=== PATIENT | female | born 1970 | race African-American/Black ===

== ENCOUNTER 2018-12-15 12:47 | Emergency (ER) | payer SELFPAY ==
--- OUTSIDE RECORDS SUMMARY | 2018-12-15 12:49 | XMS REPORT | Clinical Summary ---
Author Author [facility] Organization [facility] Address Unknown Phone Unavailable Care Team Providers Care Fishing Tool Supervisor Name Role Phone Cindi Spangler MD PCP Allergies No Known Allergies Medications End Date Status Medication Sig Dispensed Refills Start Date Active blood sugar diagnostic Check twice 100 strip 3 strips (ONETOUCH ULTRA daily 7 TEST) strip test strips 01/07/2018 sitaGLIPtin-metformin Take 1 tablet 60 tablet 3 (JANUMET) 50-1,000 mg per by mouth 2 7 tablet (two) times a day with meals. Active Problems Not on file Family History Medical History Relation Name Comments Diabetes Father Diabetes Mother Relation Name Status Comments Father Alive Mother Alive Social History Date Tobacco Use Types Packs/Day Years Used Never Smoker Smokeless Tobacco: Never Used Alcohol Use Drinks/Week oz/Week Comments No Sex Assigned at Date Recorded Not on file Industry Job Start Date Occupation Not on file Not on file Not on file Travel End Travel History Travel Start No recent travel history available. Last Filed Vital Signs Not on file Plan of Treatment Health Maintenance Due Date Last Done Comments INFLUENZA VACCINE 12/15/2018 Results Not on fileafter 12/14/2017 Insurance Type Payer Benefit Subscriber ID Effective Phone Address Plan / Dates Group HMO/PPO [id number] THCARE resent CHOICE/CHO ICE + Advance Directives Patient has advance care planning documents on file. For more information, ritesh russ contact: Galdino Fajardo [address] [place] [address]
--- OUTSIDE RECORDS SUMMARY | 2018-12-15 12:49 | XMS REPORT | Clinical Summary ---
Author Author DAHLIA RecommendCaribou Memorial HospitalDiscourse [facility] Trauma CenterClean Filtration TechnologyNew [facility] Address Unknown Phone Unavailable Care Team Providers Care Draw Bench Operator Name Role Phone Morgan Cooper MD PCP Allergies No Known Allergies Medications Not on file Active Problems Not on file Encounters Care Team Description Date Type Specialty Denise Palomino MD Myalgia (Primary Dx); Hyperglycemia; History of diabetes mellitus 08/12/2018 Emergency Emergency Medicine - 08/13/2018 08/12/2018 Travel after 12/14/2017 Social History Date Tobacco Use Types Packs/Day Years Used Never Smoker Smokeless Tobacco: Never Used Alcohol Use Drinks/Week oz/Week Comments No Alcohol Habits Answer Date Recorded How often do you have a drink containing alcohol? Never 08/12/2018 How many drinks containing alcohol do you have on Not asked a typical day when you are drinking? How often do you have six or more drinks on one Not asked occasion? Sex Assigned at Date Recorded Not on file Industry Job Start Date Occupation Not on file Not on file Not on file Travel End Travel History Travel Start No recent travel history available. Last Filed Vital Signs Time Taken Vital Sign Reading 08/13/2018 12:00 AM CDT Blood Pressure 155/88 08/13/2018 12:00 AM CDT Pulse 72 08/12/2018 11:15 PM CDT Temperature 36.6 C (97.8 F) 08/13/2018 12:00 AM CDT Respiratory Rate 18 08/13/2018 12:00 AM CDT Oxygen Saturation 98% - Inhaled Oxygen - Concentration 08/12/2018 9:14 PM CDT Weight 63.1 kg (139 lb 3 oz) - Height - - Body Mass Index - Plan of Treatment Not on file Procedures Comments Procedure Name Priority Date/Time Associated Diagnosis XR CHEST 2 VIEWS STAT 08/12/2018 11:35 PM CDT CBC W/PLT COUNT & AUTO STAT 08/12/2018 DIFFERENTIAL 11:29 PM CDT HEPATIC FUNCTION PANEL STAT 08/12/2018 11:29 PM CDT CREATINE KINASE (CK) STAT 08/12/2018 11:29 PM CDT BASIC METABOLIC PANEL (7) STAT 08/12/2018 11:29 PM CDT CBC W/PLT COUNT & AUTO STAT 08/12/2018 DIFFERENTIAL 11:29 PM CDT SCREEN, URINE STAT 08/12/2018 11:14 PM CDT URINALYSIS W/ MICROSCOPIC STAT 08/12/2018 11:14 PM CDT RAPID INFLUENZA A&B STAT 08/12/2018 SCREEN 10:18 PM CDT after 12/14/2017 Results * XR chest 2 views (08/12/2018 11:35 PM CDT) Specimen Narrative Performed At FINAL REPORT [facility] PA and Lateral views of the chest dated 08/12/2018 Clinical information: GENERALIZED BODY ACHES Comment:Heart is normal in size. Pulmonary vasculature is unremarkable. Lungs are clear. No pulmonary infiltrate or pleural effusion is present. There is dextroscoliosis in the thoracic spine. Impression:No active cardiopulmonary disease. Signed: Raissa Varela MD Report Verified Date/Time:08/12/2018 23:39:18 Reading Location: [address] Consult Reading Room Procedure Note Interface, External Ris In - 08/12/2018 11:41 PM CDT FINAL REPORT PA and Lateral views of the chest dated 08/12/2018 Clinical information: GENERALIZED BODY ACHES Comment: Heart is normal in size. Pulmonary vasculature is unremarkable. Lungs are clear. No pulmonary infiltrate or pleural effusion is present. There is dextroscoliosis in the thoracic spine. Impression: No active cardiopulmonary disease. Signed: Raissa Varela MD Report Verified Date/Time: 08/12/2018 23:39:18 Reading Location: [facility] [id number] Consult Reading Room Performing Organization Address City/State/Zipcode Phone Number GE [facility] * CBC with platelet count + automated diff (08/12/2018 11:29 PM CDT) WBC 8.3 4.0 - 10.0 K/L [facility], [facility] [place] RBC 4.61 4.00 - 5.00 M/L [facility] [place] Hemoglobin 13.2 12.0 - 15.0 GM/DL [facility] Hematocrit 39.6 36.0 - 45.0 % [facility] [place] MCV 85.8 82.0 - 99.0 fL [facility] [place] MCH 28.7 27.0 - 33.0 pg [facility] [place] MCHC 33.4 32.0 - 36.0 GM/DL [facility] [place] RDW 12.7 10.3 - 14.2 % [facility] Platelets 329 150 - 430 K/CU MM [facility] [place] MPV 8.1 6.5 - 10.5 fL [facility] [place] % Neutros 53 % [facility] [place] % Lymphs 35 % [facility] [place] % Monos 7 % [facility] [place] % Eos 5 % [facility] [place] % Baso 1 % [facility], [facility] [place] # Neutros 4.37 1.80 - 8.00 K/L [facility], [facility] [place] # Lymphs 2.85 1.48 - 4.50 K/L [facility], [facility] [place] # Monos 0.57 0.00 - 1.30 K/L [facility], [facility], [facility] # Eos 0.43 0.00 - 0.50 K/L [facility], [facility], [facility] # Baso 0.05 0.00 - 0.20 K/L [facility], [facility] [place] Specimen Blood Performing Organization Address City/[facility] Centercode Phone Number [address] [phone] [facility], [facility] * Creatine Kinase (CK) (08/12/2018 11:29 PM CDT) Total CK 55 25 - 235 U/L [facility] Specimen Blood Performing Organization Address City/[facility] Centercome Phone Number [address] [address] [facility] * Hepatic function panel (08/12/2018 11:29 PM CDT) Protein, Total 8.3Comment: Specimen 6.0 - 8.5 gm/dL [facility] moderately hemolyzed [facility], [facility], [facility] Albumin 4.1Comment: Specimen 3.5 - 5.0 g/dL [facility] moderately hemolyzed [facility], [facility], [facility] Total Bilirubin 0.6Comment: Specimen 0.1 - 1.2 mg/dL [facility] moderately hemolyzed [facility], [facility] [place] Bilirubin, Direct 0.4Comment: Specimen 0.0 - 0.4 mg/dL [facility] hemolyzed [facility], [facility] [place] Alkaline Phosphatase 125 (H) 30 - 115 U/L [facility] AST 26Comment: Specimen moderately 5 - 40 U/L [facility] hemolyzed [facility], [facility] [place] ALT 11Comment: Specimen moderately 5 - 50 U/L [facility] Specimen Blood Performing Organization Address City/State/Zipcode Phone Number [facility] [address] [place] [address] [facility] [place] * Basic Metabolic Panel (08/12/2018 11:29 PM CDT) Sodium 134 (L) 135 - 148 meq/L [facility] Potassium 5.3Comment: Specimen 3.6 - 5.5 meq/L [facility] hemolyzed [facility] [place] Chloride 101 98 - 106 meq/L [facility] CO2 24 24 - 32 meq/L [facility] BUN 14 10 - 26 mg/dL [facility] Creatinine 0.52Comment: Specimen 0.50 - 1.20 mg/dL [facility] hemolyzed [facility], [facility] [place] Glucose 297 (H) 70 - 110 mg/dL [facility] Calcium 9.2 8.5 - 10.5 mg/dL [facility], [facility], [facility] EGFR 154Comment: INSUFFICIENT mL/min/1.73 sq m [facility] CLINICAL DATA TO CALCULATE [facility] ESTIMATED GFR. [place], [facility], [facility] Specimen Blood Performing Organization Address City/[facility] Centercome Phone Number [address] [phone] [facility], [facility], [facility] * Screen, urine (08/12/2018 11:14 PM CDT) Preg Test, Ur Negative [facility] Specimen Urine Performing Organization Address [facility] Centercome Phone Number [address] [phone] [facility], [facility], [facility] * Urinalysis w/Microscopic (08/12/2018 11:14 PM CDT) Color, UA Yellow [facility] Clarity, UA Clear [facility] Specific [place], UA 1.020 1.001 - 1.035 [facility] pH, UA 6.5 5.0 - 8.0 [facility] Protein, UA 30 mg/dL (A) Negative [facility] Glucose, UA >=1000 mg/dL (A) Negative [facility] Ketones, UA Trace (A) Negative [facility] Bilirubin, UA Negative Negative [facility], [facility], [facility] Blood, UA Trace (A) Negative [facility] Nitrite, UA Negative Negative [facility], [facility] [place] Leukocytes, UA Negative Negative [facility] Urobilinogen, UA 0.2 0.2 - 1.0 mg/dL [facility] Bacteria, UA Moderate [facility] RBC, UA <5 /HPF [facility] WBC, UA 5-10 /HPF [facility] SQUAMOUS EPITHELIAL 5-10 /HPF [facility] Specimen Source [facility] Specimen Urine Performing Organization Address City/[facility] Centercode Phone Number [place] [phone] [place] [address] [facility] * Influenza antigen A & B (Rapid) (08/12/2018 10:18 PM CDT) Rapid Influenza A Antigen Negative Negative, Inconclusive [facility] Rapid influenza B Antigen Negative Negative, Inconclusive [facility] Specimen Nasopharyngeal Performing Organization Address [facility] Centercode Phone Number [place] [phone] [place] [address] [facility] after 12/14/2017 Insurance Payer Benefit Subscriber ID Type Phone Address Plan / Group [facility] [place] PPO xxxxxxxxx PPO CARE OPTIONS
--- OUTSIDE RECORDS SUMMARY | 2018-12-15 12:50 | XMS REPORT ---
Author Author [facility] Address Unknown Phone Unavailable Care Team Providers Care Internal Medicine Nurse Practitioner Name Role Phone JB MARC Unavailable Unavailable Problems This patient has no known problems. Allergies, Adverse Reactions, Alerts This patient has no known allergies or adverse reactions. Medications This patient has no known medications. Results Test Description Test Time Test Comments Text Results Atomic Results Result Comments URINALYSIS W/ MICROSCOPIC 2018-08-12 23:59:00 COLOR (BEAKER) (test hobm=903) Yellow CLARITY (BEAKER) (test eesh=202) Clear SPECIFIC GRAVITY UA (BEAKER) (test jdiv=218) 1.020 1.001-1.035 PH UA (BEAKER) (test ryqs=714) 6.5 5.0-8.0 PROTEIN UA (BEAKER) (test diok=272) 30 mg/dL Negative GLUCOSE UA (BEAKER) (test ausi=882) >=1000 mg/dL Negative KETONES UA (BEAKER) (test quvz=853) Trace Negative BILIRUBIN UA (BEAKER) (test zude=872) Negative Negative BLOOD UA (BEAKER) (test cqvm=761) Trace Negative NITRITE UA (BEAKER) (test bqgb=678) Negative Negative LEUKOCYTE ESTERASE UA (BEAKER) (test dyol=654) Negative Negative UROBILINOGEN UA (BEAKER) (test izsc=825) 0.2 mg/dL 0.2-1.0 BACTERIA (BEAKER) (test aivq=353) Moderate RBC UA-MANUAL (BEAKER) (test lgzs=5208) <5 /HPF WBC UA-MANUAL (BEAKER) (test ibai=1842) 5-10 /HPF SQUAMOUS EPITHELIAL MANUAL (BEAKER) (test hbsm=6806) 5-10 /HPF SOURCE(BEAKER) (test yfsu=9694) BASIC METABOLIC [id number] 23:49:00* Test Item Value Reference Range Comments SODIUM (BEAKER) (test nnci=244) 134 meq/L 135-148 POTASSIUM (BEAKER) (test xrbu=008) 5.3 meq/L 3.6-5.5 Specimen moderately hemolyzed CHLORIDE (BEAKER) (test uuau=075) 101 meq/L 98-106 CO2 (BEAKER) (test meef=422) 24 meq/L 24-32 BLOOD UREA NITROGEN (BEAKER) (test sfmc=338) 14 mg/dL 10-26 CREATININE (BEAKER) (test yhvb=267) 0.52 mg/dL 0.50-1.20 Specimen moderately hemolyzed GLUCOSE RANDOM (BEAKER) (test xmwa=285) 297 mg/dL 70-110 CALCIUM (BEAKER) (test kgeh=935) 9.2 mg/dL 8.5-10.5 EGFR (BEAKER) (test xlgu=6134) 154 mL/min/1.73 sq m INSUFFICIENT CLINICAL DATA TO CALCULATE ESTIMATED GFR. HEPATIC FUNCTION [id number] 23:49:00* Test Item Value Reference Range Comments TOTAL PROTEIN (BEAKER) (test mzma=762) 8.3 gm/dL 6.0-8.5 Specimen moderately hemolyzed ALBUMIN (BEAKER) (test ahdn=2694) 4.1 g/dL 3.5-5.0 Specimen moderately hemolyzed BILIRUBIN TOTAL (BEAKER) (test udue=292) 0.6 mg/dL 0.1-1.2 Specimen moderately hemolyzed BILIRUBIN DIRECT (BEAKER) (test tsyv=728) 0.4 mg/dL 0.0-0.4 Specimen moderately hemolyzed ALKALINE PHOSPHATASE (BEAKER) (test bwpw=648) 125 U/L 30-115 AST (SGOT) (BEAKER) (test ckjz=488) 26 U/L 5-40 Specimen moderately hemolyzed ALT (SGPT) (BEAKER) (test yjeh=604) 11 U/L 5-50 Specimen moderately hemolyzed CREATINE KINASE (CK)2018-08-12 23:49:00* Test Item Value Reference Range Comments CREATINE KINASE TOTAL (BEAKER) (test uqvu=574) 55 U/L 25-235 SCREEN, [id number] 23:42:00* Test Item Value Reference Range Comments TEST URINE (BEAKER) (test xabr=461) Negative RAD, CHEST, 2 [id number] 23:39:00Reason for exam:->GENERALIZED BODY ACHESIs the patient ?->UnknownFINAL REPORT PA and Lateral views of the chest dated 08/12/2018 Clinical information: GENERALIZED BODY ACHES Comment: Heart is normal in size. Pulmonary vasculature is unremarkable. Lungs are clear. No pulmonary infiltrate or pleural effusion is present. There is dextroscoliosis in the thoracic spine. Impression: No active cardiopulmonary disease. Signed: Raissa Varela MDReport Verified Date/Time: 08/12/2018 23:39:18 Reading Location: [facility] C013W Consult Reading Room W/PLT COUNT & AUTO [id number] 23:36:00* Test Item Value Reference Range Comments WHITE BLOOD CELL COUNT (BEAKER) (test wnqn=894) 8.3 K/ L 4.0-10.0 RED BLOOD CELL COUNT (BEAKER) (test hxxd=126) 4.61 M/ L 4.00-5.00 HEMOGLOBIN (BEAKER) (test tnfr=971) 13.2 GM/DL 12.0-15.0 HEMATOCRIT (BEAKER) (test mkkk=137) 39.6 % 36.0-45.0 MEAN CORPUSCULAR VOLUME (BEAKER) (test amkb=764) 85.8 fL 82.0-99.0 MEAN CORPUSCULAR HEMOGLOBIN (BEAKER) (test antt=860) 28.7 pg 27.0-33.0 MEAN CORPUSCULAR HEMOGLOBIN CONC (BEAKER) (test lvem=491) 33.4 GM/DL 32.0-36.0 RED CELL DISTRIBUTION WIDTH (BEAKER) (test ftlr=735) 12.7 % 10.3-14.2 PLATELET COUNT (BEAKER) (test lasa=004) 329 K/CU MM 150-430 MEAN PLATELET VOLUME (BEAKER) (test pqrr=427) 8.1 fL 6.5-10.5 NEUTROPHILS RELATIVE PERCENT (BEAKER) (test geba=797) 53 % LYMPHOCYTES RELATIVE PERCENT (BEAKER) (test frrv=069) 35 % MONOCYTES RELATIVE PERCENT (BEAKER) (test kycb=399) 7 % EOSINOPHILS RELATIVE PERCENT (BEAKER) (test ehbn=140) 5 % BASOPHILS RELATIVE PERCENT (BEAKER) (test vtqc=346) 1 % NEUTROPHILS ABSOLUTE COUNT (BEAKER) (test uuqg=410) 4.37 K/ L 1.80-8.00 LYMPHOCYTES ABSOLUTE COUNT (BEAKER) (test jamj=489) 2.85 K/ L 1.48-4.50 MONOCYTES ABSOLUTE COUNT (BEAKER) (test puiu=041) 0.57 K/ L 0.00-1.30 EOSINOPHILS ABSOLUTE COUNT (BEAKER) (test lbht=310) 0.43 K/ L 0.00-0.50 BASOPHILS ABSOLUTE COUNT (BEAKER) (test rwkd=200) 0.05 K/ L 0.00-0.20 RAPID INFLUENZA A&B [id number] 22:40:00* Test Item Value Reference Range Comments RAPID INFLUENZA A AG (BEAKER) (test yndo=2962) Negative Negative, Inconclusive RAPID INFLUENZA B AG (BEAKER) (test bfbz=9871) Negative Negative, Inconclusive
--- NOTE | 2018-12-15 13:11 | NUR ---
PT THOUGHT THIS WAS AN URGENT CARE. STATED SHE DID NOT WANT TO BE SEEN AT AN ER. PT STATED SHE GOOGLED URGENT CARE AND IT WAS THE TOP OF THE LIST.
== END 2018-12-15 13:13 | disposition short-term general hospital (02) ==
LOC: FSED 12:47
DX: Z53.21 Procedure and treatment not carried out due to patient leaving prior to being seen by health care provider (principal)

== ENCOUNTER 2019-09-21 02:32 | Emergency (ER) | payer OTHER ==
[~2019-09-21] VITALS: Ht 160 cm; Wt 60.8 kg
[2019-09-21] MEDS ORDERED: PRILOSEC OTC20 MG PO (03:32)
--- NOTE | 2019-09-21 04:39 | Diagnostic Imaging Report ---
EXAM: Right Upper Quadrant Ultrasound with Doppler INDICATION: Right upper quadrant pain COMPARISON: None. TECHNIQUE: Transverse and longitudinal images of the right upper abdomen were obtained. Grayscale, color Doppler and spectral waveform analysis of the hepatic vasculature and splenic vein were performed. FINDINGS: Liver: Size: 15.4 cm in the right midclavicular line, normal Appearance: Normal echogenicity, smooth contour Mass: No focal masses Gallbladder: Stones/Sludge: None Wall: 0.1 cm Appearance: No pericholecystic fluid or hydrops. Sonographic Aguirre's Sign: Negative Bile Ducts: Intrahepatic Ducts: No dilatation Extrahepatic Ducts: Common bile duct measures 0.3 cm, no dilatation Pancreas: Not seen, obscured. Right Kidney: Size: 9.3 cm Echogenicity: Normal Parenchymal thickness: Normal Collecting system: No hydronephrosis Stones: None Cyst/Mass: None Vessels: Main Portal Vein: Diameter: 0.9 cm, normal. Normal flow direction. Aorta: Visualized portions are normal Inferior Vena Cava: Visualized portions are normal Free Fluid: No ascites or pleural effusion IMPRESSION: Normal right upper quadrant ultrasound. Signed by: Tez Murphy DO on 09/21/2019 4:35 AM
== END 2019-09-21 04:59 | disposition home or self-care (01) ==
LOC: FSED 02:32
DX: R10.11 Right upper quadrant pain (principal); I10 Essential (primary) hypertension; E11.9 Type 2 diabetes mellitus without complications
CPT/HCPCS: 76705; 80053; 81003; 81025; 82553; 84484; 85025; 93005; 99284

== ENCOUNTER 2020-07-20 20:51 | Emergency (ER) | payer OTHER ==
[~2020-07-20] VITALS: Ht 162.6 cm; Wt 60.8 kg
[~2020-07-20 20:51] MED LIST: PRILOSEC OTC20 MG PO
[2020-07-20] MEDS ORDERED: CLONIDINE HCL 0.1 MG TAB PO ONE (22:00)
[2020-07-20] MEDS ORDERED: CLONIDINE HCL 0.1 MG TAB ONE (22:15)
[2020-07-21] MEDS ORDERED: CEFTRIAXONE SOD 1 GM/50 ML BAG IV ONE
[2020-07-21] MEDS ORDERED: CEFTRIAXONE SOD 1 GM VIAL ONE (00:04)
[2020-07-21] MEDS ORDERED: SODIUM CHLORIDE 0.9% 50ML 50 ML ONE (00:04)
[2020-07-21] MEDS ORDERED: MACROBID 100 M100 MG PO (00:08)
[2020-07-21] MEDS ORDERED: HYDROCHLOROTHIA25 MG PO (00:09)
[2020-07-21] MEDS ORDERED: CEFTRIAXONE SOD 1 GM in SODIUM CHLORIDE 0.9% 50ML 50 ML IV ONE (00:15)
== END 2020-07-21 00:20 | disposition home or self-care (01) ==
LOC: FSED 21:25
DX: I10 Essential (primary) hypertension (principal); R60.9 Edema, unspecified; E11.65 Type 2 diabetes mellitus with hyperglycemia; N39.0 Urinary tract infection, site not specified; E78.5 Hyperlipidemia, unspecified; D64.9 Anemia, unspecified
CPT/HCPCS: 71046; 80053; 81003; 85025; 87086; 93005; 99284; J0696

== ENCOUNTER 2022-06-16 03:20 | Emergency (ER) | payer OTHER ==
[~2022-06-16] VITALS: Ht 162.6 cm; Wt 63.5 kg
[~2022-06-16 03:20] MED LIST changes: +HYDROCHLOROTHIA25 MG PO; +MACROBID 100 M100 MG PO
[2022-06-16] MEDS ORDERED: SODIUM CHLORIDE 0.9% 1000ML 1,000 ML IV STA (04:16)
[2022-06-16] MEDS ORDERED: OMEPRAZOLE40 MG PO (04:18)
[2022-06-16] MEDS ORDERED: SODIUM CHLORIDE 0.9% 1000ML 1,000 ML ONE (04:32)
[2022-06-16 05:34] VITALS: BP 199/95
== END 2022-06-16 05:34 | disposition home or self-care (01) ==
LOC: FSED 04:17
DX: R10.13 Epigastric pain (principal); K52.9 Noninfective gastroenteritis and colitis, unspecified; E86.0 Dehydration; E11.65 Type 2 diabetes mellitus with hyperglycemia; I10 Essential (primary) hypertension; E78.00 Pure hypercholesterolemia, unspecified
CPT/HCPCS: 80048; 80076; 81003; 81025; 85025; 96374; 99283; C9113; J7030